=== PATIENT | male | born 1950 | race Caucasian/White ===

== ENCOUNTER 2023-06-19 19:09 | Inpatient (IN) | payer SELFPAY ==
[2023-06-19] VITALS (12 sets, daily range): BP systolic 140–163; BP diastolic 70–86; PULSE 35–63; RESP 14–22; TEMP 36.7–36.8; O2SAT 94–98; BMI 28.0
--- NOTE | 2023-06-19 19:26 | ECG_ITS ---
APPROVED REPORT Exam: Resting ECG HR:65 bpm ECG Measurements Heart Rate 65 AXES WV 141 P 43 QRSd 90 QRS 25 QT 400 T 49 QTc 411 Conclusion SINUS RHYTHM NORMAL ECG UNCONFIRMED REPORT Electronically signed by : Carlos Manuel Joseph MD 06/20/2023 12:07:38
--- NOTE | 2023-06-19 19:33 | CT_ITS ---
PROCEDURE INFORMATION: Exam: CTA Head With Contrast, Arteriography Exam date and time: 06/19/2023 8:13 PM Age: 73 years old Clinical indication: Other: AMS; Additional info: AMS, bradycardia, HTN TECHNIQUE: Imaging protocol: Computed tomographic angiography of the head with contrast. Exam focused on the arteries. 3D rendering (Not supervised by radiologist): MIP and/or 3D reconstructed images were created by the technologist. Radiation optimization: All CT scans at this facility use at least one of these dose optimization techniques: automated exposure control; mA and/or kV adjustment per patient size (includes targeted exams where dose is matched to clinical indication); or iterative reconstruction. Contrast material: ISOVUE; Contrast volume: 100 ml; Contrast route: INTRAVENOUS (IV); REPORTING DATA: Count of CT and Cardiac NM exams in prior 12 months: This patient has received 0 known CTs and 0 known cardiac nuclear medicine studies in the 12 months prior to the current study. COMPARISON: CT HEAD/BRAIN WO CON 06/19/2023 8:09 PM FINDINGS: ANTERIOR CIRCULATION: Right internal carotid artery: Intracranial segment is patent with no significant stenosis. No aneurysm. Right middle cerebral artery: No occlusion or significant stenosis. No aneurysm. Right anterior cerebral artery: No occlusion or significant stenosis. No aneurysm. Left internal carotid artery: Intracranial segment is patent with no significant stenosis. No aneurysm. Left middle cerebral artery: No occlusion or significant stenosis. No aneurysm. Left anterior cerebral artery: No occlusion or significant stenosis. No aneurysm. POSTERIOR CIRCULATION: Right vertebral artery: No occlusion or significant stenosis. No aneurysm. Left vertebral artery: No occlusion or significant stenosis. No aneurysm. Basilar artery: No occlusion or significant stenosis. No aneurysm. Right posterior cerebral artery: No occlusion or significant stenosis. No aneurysm. Left posterior cerebral artery: No occlusion or significant stenosis. No aneurysm. Brain: No definite mass, mass effect, or midline shift. Cerebral ventricles: No ventriculomegaly. Bones/joints: Unremarkable. No acute fracture. Soft tissues: Unremarkable. IMPRESSION: No large vessel stenosis or occlusion.
--- NOTE | 2023-06-19 19:33 | XR_ITS ---
PROCEDURE INFORMATION: Exam: XR Chest Exam date and time: 06/19/2023 7:56 PM Age: 73 years old Clinical indication: Other: AMS TECHNIQUE: Imaging protocol: Radiologic exam of the chest. Views: 1 view. COMPARISON: No relevant prior studies available. FINDINGS: Lungs: Unremarkable. No consolidation. Pleural spaces: Unremarkable. No pleural effusion. No pneumothorax. Heart/Mediastinum: Unremarkable. No cardiomegaly. Bones/joints: Moderate degenerative changes throughout the thoracic spine and in the right shoulder. No acute fracture. IMPRESSION: No acute disease
--- NOTE | 2023-06-19 19:33 | CT_ITS ---
PROCEDURE INFORMATION: Exam: CT Head Without Contrast Exam date and time: 06/19/2023 8:09 PM Age: 73 years old Clinical indication: Altered mental status/memory loss; Additional info: AMS, bradycardia, HTN TECHNIQUE: Imaging protocol: Computed tomography of the head without contrast. Radiation optimization: All CT scans at this facility use at least one of these dose optimization techniques: automated exposure control; mA and/or kV adjustment per patient size (includes targeted exams where dose is matched to clinical indication); or iterative reconstruction. REPORTING DATA: Count of CT and Cardiac NM exams in prior 12 months: This patient has received 0 known CTs and 0 known cardiac nuclear medicine studies in the 12 months prior to the current study. COMPARISON: No relevant prior studies available. FINDINGS: Brain: Moderate-sized area of hypoattenuation in the left basal ganglia concerning for acute to subacute ischemia. No intracranial hemorrhage, mass effect or midline shift. Mild generalized cerebral atrophy. Cerebral ventricles: No ventriculomegaly. Paranasal sinuses: Moderate mucosal thickening in the right frontal sinus and bilateral ethmoid air cells as well as the bilateral sphenoid sinus locule. Maxillary sinuses appear clear. Mastoid air cells: Visualized mastoid air cells are well aerated. Bones/joints: Unremarkable. No acute fracture. Soft tissues: Unremarkable. IMPRESSION: Findings concerning for acute to subacute ischemia in the left basal ganglia. No acute intracranial hemorrhage.
--- NOTE | 2023-06-19 19:33 | CT_ITS ---
PROCEDURE INFORMATION: Exam: CTA Neck With Contrast Exam date and time: 06/19/2023 8:13 PM Age: 73 years old Clinical indication: Other: AMS; Additional info: AMS, bradycardia, HTN TECHNIQUE: Imaging protocol: Computed tomographic angiography of the neck with contrast. 3D rendering (Not supervised by radiologist): MIP and/or 3D reconstructed images were created by the technologist. Radiation optimization: All CT scans at this facility use at least one of these dose optimization techniques: automated exposure control; mA and/or kV adjustment per patient size (includes targeted exams where dose is matched to clinical indication); or iterative reconstruction. Contrast material: ISOVUE; Contrast volume: 100 ml; Contrast route: INTRAVENOUS (IV); REPORTING DATA: Count of CT and Cardiac NM exams in prior 12 months: This patient has received 0 known CTs and 0 known cardiac nuclear medicine studies in the 12 months prior to the current study. COMPARISON: CT HEAD/BRAIN WO CON 06/19/2023 8:09 PM FINDINGS: Right common carotid artery: No stenosis. No dissection or occlusion. Right internal carotid artery: No stenosis of the extracranial segment. No dissection or occlusion. Right external carotid artery: No occlusion or stenosis of the origin. Left common carotid artery: No stenosis. No dissection or occlusion. Left internal carotid artery: No stenosis of the extracranial segment. No dissection or occlusion. Left external carotid artery: No occlusion or stenosis of the origin. 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 Left vertebral artery: No stenosis. No dissection or occlusion. Thyroid: Heterogeneous 10 mm right lobe thyroid nodule with adjacent coarse calcification. Thyroid gland is otherwise unremarkable. Soft tissues: Normal. No significant soft tissue swelling. Bones/joints: Moderate multilevel degenerative disc changes and facet arthropathy throughout the cervical spine with multilevel anterior osteophyte formation. No acute fracture or subluxation. IMPRESSION: 1. No carotid stenosis 2. Patent bilateral vertebral arteries 3. Moderate degenerative changes throughout the cervical spine. 4. 10 mm right lobe thyroid nodule. Correlation with thyroid ultrasound recommended when clinically feasible. COMMENTS: Consistent with the [employer]'s Incidental Findings Committee white paper (J Am Boaz Radiol 2015): In patients aged 35 years and older with an incidental thyroid nodule equal to or greater than 1.[address], MRI or extrathyroidal US, further evaluation with dedicated thyroid US is recommended for patients with normal life expectancy and without comorbidities. For smaller nodules without suspicious features, no further evaluation or follow up is recommended. REFERENCES: NASCET CRITERIA. The degree of stenosis in the cervical segment of the internal carotid artery is based on NASCET criteria. Normal is no stenosis. Mild is less than 50% stenosis. Moderate is 50-69% stenosis. Severe is 70% to 99% stenosis. Total occlusion is no detectable patent lumen.
[2023-06-19 19:50] LABS: VBG Base Excess -0.2 mmol/L (-2.4-2.3); VBG HCO3 25.7 mmol/L (23-30); VBG Oxygen Saturation 61.2 % (50-70); VBG PCO2 49.5 mmol/L (35-51); VBG PH 7.33 mmol/L (7.31-7.41); VBG PO2 33.9 mmol/L (28-40); VBG Total CO2 27.2 mmol/L (23-27)
[2023-06-19 19:51] LABS: Basophils # 0.1 K/mm3 (0-0.2); Basophils % 0.9 % (0.1-2.0); Eosinophils # 0.2 K/mm3 (0.0-0.4); Hematocrit 42.6 % (42.0-52.0); Hemoglobin 13.7 g/dL (14.1-18.0); Lymphocytes # 1.8 K/mm3 (0.7-4.5); Lymphocytes % 31.7 % (10-50); Mean Corpuscular HGB Conc 32.2 g/dL (31.8-35.4); Mean Corpuscular Hemoglobin 30.5 pg (27.0-31.2); Mean Corpuscular Volume 94.8 fl (80-94); Mean Platelet Volume 8.6 fl (7.4-10.4); Monocytes # 0.5 K/mm3 (0.1-1.0); Monocytes % 8.5 % (1.7-9.3); Neutrophils # 3.1 K/mm3 (1.8-7.8); Neutrophils % 54.9 % (37.0-80.0); Platelet Count 241 K/mm3 (142-424); Red Blood Count 4.49 M/mm3 (4.60-6.20); Red Cell Distribution Width 13.7 % (11.5-17.5); White Blood Count 5.7 K/mm3 (4.8-10.8)
[2023-06-19 19:55] LABS: Alanine Aminotransferase 18 U/L (12-78); Albumin Level 4.2 g/dl (3.5-5.0); Albumin/Globulin Ratio 1.2 (1.1-1.8); Alkaline Phosphatase 38 U/L (38-126); Anion Gap 10.9 mEq/L (5-15); Aspartate Amino Transferase 27 U/L (17-59); Bilirubin,Total 0.3 mg/dl (0.2-1.3); Blood Urea Nitrogen 26 mg/dl (9-20); Calcium 9.3 mg/dl (8.4-10.2); Carbon Dioxide 29 mmol/L (22.0-30.0); Chloride 104 mmol/L (98-107); Creatinine Clearance Estimated 73 mL/min (50-200); Estimated Glomerular Filt Rate 83 ml/min (>60); GFR (African American) 100 ML/MIN (>60); Globulin 3.6 g/dL (1.3-3.2); Glucose 157 mg/dl (74-100); Potassium 3.9 mmoL/L (3.5-5.1); Sodium 140 mmol/L (136-145); Total Protein,Serum 7.8 g/dl (6.3-8.2)
--- NOTE | 2023-06-19 19:57 | HMH.EDGENADL ---
Discharge Plan Disposition Patient Disposition: Admitted Clinical Impressions Clinical Impression: Ischemic cerebrovascular accident (CVA), AMS (altered mental status) Discharge ED Provider: Christiano White General Adult HPI General Chief complaint: Arrhythmia/Palpitations Stated complaint: tired,and mental status change Time Seen by Provider: 06/19/23 19:10 Mode of Arrival: Ambulatory Source of Information: Patient Limitations: No Limitations Description of Symptoms (Recalled from ER Triage Doc. by RN): pt cc today was Altered mental status, fatigue, weakness, pt was 35 bpm upon arrival, History of Present Illness HPI narrative: 73-year-old male with no relevant medical history other than diabetes presenting with weakness, confusion, fatigue. Patient started acting like this 1 day prior to arrival on 06/18. Patient usually alert, oriented, able to walk around, taking care of his who is chronically ill. Today, was unable to focus on anything and continued to be confused. No vomiting, diarrhea, fevers, rash, or any other abnormalities. Patient unable to contribute history, history largely available from son. Patient does not take medications every day, but does take supplements. Unsure what these are. Related Data Allergies Allergy/AdvReac Type Severity Reaction Status Date / Time No Known Allergies Allergy Verified 06/19/23 19:44 [facility] Disclaimer: The information contained in this section may have been updated after the patient was seen, as this information can be updated by other users. Social History Smoking Status: Former smoker alcohol intake: never current occupational status: unemployed Travel in the last 8 weeks: None ROS Obtained: Yes All systems reviewed & no additional complaints except as documented Physical Exam General General appearance: alert and lethargic Head Head exam: atraumatic and normocephalic Eye Eye exam: Present normal appearance, PERRL and EOMI; Absent scleral icterus or conjunctival redness ENT ENT exam: Present mucous membranes dry Neck Neck exam: Present normal inspection, full ROM and trachea midline; Absent meningismus Respiratory Respiratory exam: Present normal lung sounds bilaterally; Absent respiratory distress, wheezes, stridor, accessory muscle use or prolonged expiratory phase Cardiovascular Cardiovascular exam: Present normal rhythm and bradycardia Abdominal Exam Abdominal exam: Present soft; Absent distention, tenderness, guarding, rebound, rigidity or normal bowel sounds Extremities Exam Extremities exam: Absent edema Neurological Exam Neurological exam: Present alert, CN II-XII intact and normal gait; Absent oriented X3 (Oriented only to person) or motor sensory deficit Skin Skin exam: Present warm, dry and pallor; Absent diaphoresis or erythema Medical Decision Making Medical Records Medical records reviewed: Yes I reviewed the patient's medical records. Prasad Inquiry Pt receiving controlled substance: No Prasad was queried for this patient: No Vital Signs: 06/19/23 19:12 06/19/23 21:04 06/19/23 22:13 Temperature 98.0 F 98.2 F Temperature Source Oral Pulse Rate 56 L 56 L Pulse Rate [Right Radial] 35 L Respiratory Rate 20 18 16 Blood Pressure 156/80 H 144/83 H Blood Pressure [Right Arm] 161/70 H Blood Pressure Mean Blood Pressure Mean [Right Arm] 100 02 Sat by Pulse Oximetry 95 Oxygen Delivery Method Room Air Room Air 06/19/23 19:21 06/19/23 19:30 06/19/23 20:30 Temperature Temperature Source Pulse Rate 44 L 63 54 L Pulse Rate [Right Radial] Respiratory Rate 20 22 15 Blood Pressure 163/81 H 140/85 Blood Pressure [Right Arm] Blood Pressure Mean Blood Pressure Mean [Right Arm] 02 Sat by Pulse Oximetry 98 95 95 Oxygen Delivery Method Room Air Room Air Room Air 06/19/23 20:31 06/19/23 21:01 06/19/23 21:30 Temperature Temperature Source Pulse Rate 58 L 57 L 54 L Pulse Rate [R
[2023-06-19 20:07] LABS: Acetone, Serum (Rapid) None Detected (None Detect)
[2023-06-19 20:08] LABS: Troponin I < 0.01 ng/ml (0.00-0.034)
[2023-06-19 20:18] LABS: Lactic Acid 1.3 mmol/L (0.7-2.1)
[2023-06-19 20:29] LABS: T4 (Thyroxine) 6.8 ug/dl (5.53-11.0)
--- NOTE | 2023-06-19 20:32 | PC.NURSE ---
Dr. White s/w [facility]
--- NOTE | 2023-06-19 20:39 | PC.NURSE ---
PER ER 2nd set of blood cultures not needed
[2023-06-19 20:42] LABS: Thyroid Stimulating Hormone 1.93 uIU/mL (0.465-4.68)
--- NOTE | 2023-06-19 20:47 | PC.NURSE ---
Calling [facility] regarding possible transfer
--- NOTE | 2023-06-19 20:49 | PC.NURSE ---
automobile club membership sales agent will be calling back. s/w wind technician and images are power-shared with [facility] and will prepare a disc.
--- NOTE | 2023-06-19 21:00 | PC.NURSE ---
Dr. White s/w Dr. Prasad with [facility]
[2023-06-19 21:04] LABS: Activated Partial Thrombo Time 27.3 seconds (22.8-30.6); INR 1.06 (0.9-1.1); Prothrombin Time 11.4 seconds (10.1-12.5)
[2023-06-19 21:08] LABS: Hemoglobin A1C 7.9 % (4.0-6.0)
--- NOTE | 2023-06-19 21:23 | PC.NURSE ---
PER ER MD patient will not be transferred to and will be staying here for medical management, ER currently speaking with hospital medicine
[2023-06-19 21:27] LABS: Benzodiazepines Screen,Urine Negative ng/ml (<200)
[2023-06-19 21:28] LABS: Amphetamine/Metha Screen,Urine Negative ng/ml (<1000)
[2023-06-19 21:29] LABS: Barbiturates Screen,Urine Negative ng/ml (<200); Methadone Screen,Urine Negative ng/ml (<300)
[2023-06-19 21:30] LABS: Cannabinoid Screen,Urine Negative ng/ml (<50)
[2023-06-19 21:31] LABS: Cocaine Screen,Urine Negative ng/ml (<300); Opiate Screen,Urine Negative ng/ml (<300)
[2023-06-19 21:32] LABS: Phencyclidine Screen,Urine Negative ng/ml (<25)
--- NOTE | 2023-06-19 21:46 | PC.NURSE ---
notified boiler house inspector of admission
--- NOTE | 2023-06-19 21:48 | PC.NURSE ---
PATIENT ADMITTED TO [facility] WITH DX OF ACUTE CVA TO SERVICE OF THE HOSPITALIST.
--- NOTE | 2023-06-19 22:04 | PC.NURSE ---
Gave report to Elise Reyes on Med/Surg
--- NOTE | 2023-06-19 22:18 | PC.NURSE ---
pt to floor via stretcher at this time
--- NOTE | 2023-06-19 23:21 | EXP.HP ---
History of Present Illness *Admission Date: 06/19/23 *History of present illness: This is a 73-year-old male with no known medical history other than hyperglycemia presenting with weakness, confusion, fatigue started 1 day prior to arrival on 06/18. Patient usually alert, oriented, able to walk around, taking care of his who is chronically ill. Today, was unable to focus on anything and continued to be confused. Patient is s poor historian therefore data is limited, history obtained by ER review and family at bedside. No vomiting, diarrhea, fevers, rash, or any other abnormalities. Patient does not take medications every day, but does take home supplements. Admitted for evaluation and treatment. [facility] Disclaimer: The information contained in this section may have been updated after the patient was seen, as this information can be updated by other users. Medical History (Updated 06/20/23 @ 07:41 by Sandeep Frost MD) Diabetes Social History (Updated 06/19/23 @ 22:57 by Shaina Tse RN) Smoking Status: Former smoker alcohol intake: never current occupational status: unemployed Travel in the last 8 weeks: None Review of Systems Review of Systems Review of systems:: pertinent systems reviewed and negative unless documented below Meds Home Medications and Allergies Home Medications Medication Instructions Recorded Confirmed Type No Known Home Medications 06/20/23 06/20/23 History New Prescriptions to Start Prescriptions: Allergies Allergy/AdvReac Type Severity Reaction Status Date / Time No Known Allergies Allergy Verified 06/19/23 19:44 Exam Data for Last 24 hours Vital signs and Labs for Last 24 Hours: Temp Pulse Resp BP Pulse Ox O2 Del Method 98.2 F 56 L 16 144/83 H 95 Room Air 06/19/23 22:13 06/19/23 22:13 06/19/23 22:13 06/19/23 22:13 06/19/23 22:00 06/19/23 22:13 Laboratory Results - last 24 hr 06/19/23 19:25: WBC 5.7, RBC 4.49 L, Hgb 13.7 L, Hct 42.6, MCV 94.8 H, MCH 30.5, MCHC 32.2, RDW 13.7, Plt Count 241, MPV 8.6, Neut % (Auto) 54.9, Lymph % (Auto) 31.7, Ashe % (Auto) 8.5, Eos % (Auto) 4.0, Baso % (Auto) 0.9, Neut # (Auto) 3.1, Lymph # (Auto) 1.8, Ashe # (Auto) 0.5, Eos # (Auto) 0.2, Baso # (Auto) 0.1, PT 11.4, INR 1.06, APTT 27.3, Sodium 140, Potassium 3.9, Chloride 104, Carbon Dioxide 29, Anion Gap 10.9, BUN 26 H, Creatinine 0.90, Estimated Creat Clear 73, Estimated GFR 83, Est GFR ( Amer) 100, Glucose 157 H, Hemoglobin A1c 7.9 H, Calcium 9.3, Total Bilirubin 0.3, AST 27, ALT 18, Alkaline Phosphatase 38, Troponin I < 0.01, Total Protein 7.8, Albumin 4.2, Globulin 3.6 H, Albumin/Globulin Ratio 1.2, TSH 1.93, Thyroxine (T4) 6.8, Acetone Level None detected 06/19/23 19:33: VBG pH 7.33, VBG pCO2 49.5, VBG pO2 33.9, VBG HCO3 25.7, VBG Total CO2 27.2 H, VBG O2 Saturation 61.2, VBG Base Excess -0.2 06/19/23 19:50: Lactate 1.3 06/19/23 21:10: Urine Opiates Screen Negative, Urine Methadone Screen Negative, Ur Barbituates Screen Negative, Ur Phencyclidine Scrn Negative, Ur Amphetamines Screen Negative, U Benzodiazepines Scrn Negative, Urine Cocaine Screen Negative, U Marijuana (THC) Screen Negative I & O for Last 24 hours: Intake & Output 06/16/23 06/17/23 06/18/23 06/19/23 23:59 23:59 23:59 23:59 Intake Total 1000 / 1000 Balance 1000 / 1000 Weight 79.038 kg Constitutional Constitutional: no acute distress, cooperative and somnolent *Routine HEENT Exam Head: Present normocephalic and atraumatic Eye: Present EOMI, PERRL and normal accommodation ENT: Present mucous membranes moist *Routine Neck Exam Neck: Present supple, full ROM and trachea midline *Routine Respiratory Exam Respiratory: Present normal respiratory effort, able to speak in complete sentences and symmetric chest movement *Routine Cardiovascular Exam Cardiovascular: Present RRR, Normal S1, Normal S2 and bradycardia *Routine Abdominal Exam Abdominal: Present soft and normoacti
[2023-06-19 23:42] LABS: Troponin I < 0.01 ng/ml (0.00-0.034)
[2023-06-20] VITALS (9 sets, daily range): BP systolic 110–134; BP diastolic 52–85; PULSE 39–63; RESP 16–22; TEMP 36.3–37; O2SAT 92–99; BMI 28.0
[2023-06-20 02:21] LABS: Troponin I < 0.01 ng/ml (0.00-0.034)
[2023-06-20 06:41] LABS: Basophils % 0.5 % (0.1-2.0); Eosinophils # 0.2 K/mm3 (0.0-0.4); Eosinophils % 2.7 % (0.1-12.0); Hematocrit 43.4 % (42.0-52.0); Hemoglobin 13.8 g/dL (14.1-18.0); Lymphocytes # 1.6 K/mm3 (0.7-4.5); Lymphocytes % 21.2 % (10-50); Mean Corpuscular HGB Conc 31.7 g/dL (31.8-35.4); Mean Corpuscular Hemoglobin 30.5 pg (27.0-31.2); Mean Platelet Volume 8.3 fl (7.4-10.4); Monocytes # 0.5 K/mm3 (0.1-1.0); Monocytes % 6.8 % (1.7-9.3); Neutrophils # 5.1 K/mm3 (1.8-7.8); Neutrophils % 68.7 % (37.0-80.0); Platelet Count 247 K/mm3 (142-424); Red Blood Count 4.52 M/mm3 (4.60-6.20); Red Cell Distribution Width 13.8 % (11.5-17.5); White Blood Count 7.4 K/mm3 (4.8-10.8)
[2023-06-20 06:55] LABS: Alanine Aminotransferase 16 U/L (12-78); Albumin Level 3.6 g/dl (3.5-5.0); Albumin/Globulin Ratio 1.1 (1.1-1.8); Alkaline Phosphatase 40 U/L (38-126); Anion Gap 10.3 mEq/L (5-15); Aspartate Amino Transferase 21 U/L (17-59); Bilirubin,Total 0.5 mg/dl (0.2-1.3); Blood Urea Nitrogen 17 mg/dl (9-20); Carbon Dioxide 30 mmol/L (22.0-30.0); Chloride 105 mmol/L (98-107); Chol/HDL Ratio 6.4 (1-3.5); Cholesterol 193 mg/dl (140-200); Creatinine Clearance Estimated 74 mL/min (50-200); Estimated Glomerular Filt Rate 83 ml/min (>60); GFR (African American) 100 ML/MIN (>60); Globulin 3.2 g/dL (1.3-3.2); Glucose 144 mg/dl (74-100); HDL Cholesterol 30 mg/dl (40-60); Phosphorous 3.9 mg/dl (2.5-4.5); Potassium 4.3 mmoL/L (3.5-5.1); Sodium 141 mmol/L (136-145); Total Protein,Serum 6.8 g/dl (6.3-8.2); Triglycerides 88 mg/dl (30-150); VLDL Cholesterol 18 mg/dL (0-40)
[2023-06-20 07:05] LABS: Direct LDL Cholesterol 114.72 mg/dL (100-129)
--- NOTE | 2023-06-20 07:30 | CA_ITS ---
APPROVED REPORT EXAM: Comprehensive 2D, Doppler, and color-flow Echocardiogram Joint Setter: Angie Rene CRT Ht: 5 ft 6 in Wt: 174lbs BSA: 1.88 BP: 144/83 mmHg Indications: CVA/TIA, Diabetes,BRADYCARDIA HR DROPPED TO 38 DURING ECHO 2D Dimensions LVOT 1.67 cm (M/F) 1.5-2.5 LA Volume 38.70 mL LA Volume Index 20.10 mL/m2 (M/F) 16-34 M-Mode Dimensions RVDd 2.48 cm (0.9-2.6) LA Diam 4.09 cm (1.9-4.0) LVDd 4.22 cm (3.5-5.7) Ao Diam 3.71 cm (2.0-3.7) LVDs 3.11 cm (3.5-5.7) IVSd 1.98 cm (0.6-1.1) PWd 0.70 cm (0.6-1.1) EF (Teich) 51.90% FS 26.30% EDV (Teich) 79.50 mL TAPSE 2.10 (<1.7) ESV (Teich) 38.20 mL LV Diastology E Decel Time 317.00 (160-240 msec) E/A Ratio 0.74 MED E' 6.70 (< 7 cm/sec) MED A' 10.30 cm/s E'/MED E' Ratio 7.99 (>14) LAT E' 8.40 (<10 cm/sec) LAT A' 9.40 cm/s E/LAT E' Ratio 6.37 (>14) Aortic Valve AI PHT 917.00 ms AO Peak GR. 5.30 mmHg Mitral Valve MV A Velocity 73.00 (40-130 cm/s) E/A Ratio 0.74 MV Decel. Time 317.00 (160-240 ms) Tricuspid Valve TR P. Velocity 222.00 cm/s RAP Estimate 10.00 mmHg RVSP 29.70 mmHg Left Ventricle The left ventricle is normal size. The left ventricular systolic function is normal. The left ventricular ejection fraction is within the normal range. There is normal left ventricular wall thickness. There is normal LV segmental wall motion. The left ventricular diastolic function is normal. LVEF is 55-60%. Right Ventricle Right ventricle is mildly dilated. The right ventricular systolic function is normal. Atria The left atrium size is normal. The right atrium size is normal. There is no Doppler evidence of interatrial shunt. Aortic Valve The aortic valve is mildly thickened. There is no aortic valvular stenosis. Trace aortic regurgitation. Mitral Valve The mitral valve is normal in structure. No evidence of mitral valve stenosis. There is no mitral valve regurgitation noted. Tricuspid Valve The tricuspid valve leaflets are thin and pliable. Trace tricuspid regurgitation. There is insufficient TR jet to estimate RVSP. Pulmonic Valve The pulmonary valve is normal in structure. Trace pulmonic regurgitation. Great Vessels The aortic root is normal in size. The ascending aorta is normal in size. IVC is normal in size and collapses >50% with inspiration. Pericardium There is no pericardial effusion. Other Information Study Quality: Technically Difficult Conclusion This was a technically difficult study in the setting of poor acoustic windows. Normal biventricular systolic function. Mild RV dilation with normal RV function. No significant valvular stenosis or regurgitation. Electronically signed by : Gladys Smith MD 06/20/2023 14:44:35
--- NOTE | 2023-06-20 07:30 | CA_ITS ---
FINAL REPORT TECHNIQUE: Ballard scale, color and spectral doppler images of the bilateral carotid arteries were obtained. CLINICAL HISTORY: Stroke COMPARISON: None FINDINGS: Peak systolic velocity in the right internal carotid artery is 116 cm/sec. The internal carotid to common carotid artery ratio is 1.4. There is no significant carotid artery stenosis and mild plaque formation. The right vertebral artery is normal in direction. Peak systolic velocity in the left internal carotid artery is 101 cm/sec. The internal carotid to common carotid artery ratio is 1.8. There is no significant carotid artery stenosis and no significant plaque formation. The left vertebral artery is normal in direction. IMPRESSION: No ultrasound evidence of hemodynamically significant carotid artery stenosis. Normal peak systolic velocities and normal internal to common carotid artery ratios bilaterally. Antegrade flow bilateral vertebral arteries. Reviewed, Interpreted and Dictated by Rosy Camacho MD Transcribed by Dana Diaz Authenticated and [facility]
--- NOTE | 2023-06-20 07:36 | EXP.PN ---
Subjective *Date: 06/20/23 *Time: 07:36 Interval history: Patient seen and examined at bedside. I am accompanied by nursing staff. Nursing staff report that he remains afebrile with ongoing bradycardia and stable blood pressures. He is saturating appropriately on 2 L of oxygen via nasal cannula. His admission ECG identified no acute changes and his troponin trend is negative. His hemoglobin A1c is 7.9%, electrolytes are normal, creatinine 0.9, CBC normal with an MCV 96. His INR and TSH are normal. LFTs are normal. His lipid panel identifies a low HDL at 30. Chest x-ray identifies no acute disease. Head CT identifies concerns with a left basal ganglia subacute stroke. CT identified no stenosis of the neck or head. His risk factor for strokes have been reviewed including tobacco use and diabetes. Cardiology has been consulted for his bradycardia. An echocardiogram carotid Dopplers and MRI of the brain are pending. He will continue with antiplatelet and statin therapy. Exam Data for Last 24 hours Vital signs and Labs for Last 24 Hours: Temp Pulse Resp BP Pulse Ox O2 Del Method O2 Flow Rate 97.3 F L 42 L 16 110/66 96 Room Air 2 06/20/23 04:00 06/20/23 04:00 06/20/23 04:00 06/20/23 04:00 06/20/23 04:00 06/20/23 06:55 06/20/23 05:00 Laboratory Results - last 24 hr 06/19/23 19:25: WBC 5.7, RBC 4.49 L, Hgb 13.7 L, Hct 42.6, MCV 94.8 H, MCH 30.5, MCHC 32.2, RDW 13.7, Plt Count 241, MPV 8.6, Neut % (Auto) 54.9, Lymph % (Auto) 31.7, [place] % (Auto) 8.5, Eos % (Auto) 4.0, Baso % (Auto) 0.9, Neut # (Auto) 3.1, Lymph # (Auto) 1.8, [place] # (Auto) 0.5, Eos # (Auto) 0.2, Baso # (Auto) 0.1, PT 11.4, INR 1.06, APTT 27.3, Sodium 140, Potassium 3.9, Chloride 104, Carbon Dioxide 29, Anion Gap 10.9, BUN 26 H, Creatinine 0.90, Estimated Creat Clear 73, Estimated GFR 83, Est GFR ( Amer) 100, Glucose 157 H, Hemoglobin A1c 7.9 H, Calcium 9.3, Total Bilirubin 0.3, AST 27, ALT 18, Alkaline Phosphatase 38, Troponin I < 0.01, Total Protein 7.8, Albumin 4.2, Globulin 3.6 H, Albumin/Globulin Ratio 1.2, TSH 1.93, Thyroxine (T4) 6.8, Acetone Level None detected 06/19/23 19:33: VBG pH 7.33, VBG pCO2 49.5, VBG pO2 33.9, VBG HCO3 25.7, VBG Total CO2 27.2 H, VBG O2 Saturation 61.2, VBG Base Excess -0.2 06/19/23 19:50: Lactate 1.3 06/19/23 21:10: Urine Opiates Screen Negative, Urine Methadone Screen Negative, Ur Barbituates Screen Negative, Ur Phencyclidine Scrn Negative, Ur Amphetamines Screen Negative, U Benzodiazepines Scrn Negative, Urine Cocaine Screen Negative, U Marijuana (THC) Screen Negative 06/19/23 23:15: Troponin I < 0.01 06/20/23 01:51: Troponin I < 0.01 06/20/23 06:30: WBC 7.4 D, RBC 4.52 L, Hgb 13.8 L, Hct 43.4, MCV 96.0 H, MCH 30.5, MCHC 31.7 L, RDW 13.8, Plt Count 247, MPV 8.3, Neut % (Auto) 68.7, Lymph % (Auto) 21.2, [place] % (Auto) 6.8, Eos % (Auto) 2.7, Baso % (Auto) 0.5, Neut # (Auto) 5.1, Lymph # (Auto) 1.6, [place] # (Auto) 0.5, Eos # (Auto) 0.2, Baso # (Auto) 0.0, Sodium 141, Potassium 4.3, Chloride 105, Carbon Dioxide 30, Anion Gap 10.3, BUN 17 D, Creatinine 0.90, Estimated Creat Clear 74, Estimated GFR 83, Est GFR ( Amer) 100, Glucose 144 H, Calcium 9.0, Phosphorus 3.9, Magnesium 2.0, Total Bilirubin 0.5, AST 21, ALT 16, Alkaline Phosphatase 40, Total Protein 6.8, Albumin 3.6 D, Globulin 3.2, Albumin/Globulin Ratio 1.1, Triglycerides 88, Cholesterol 193, LDL Cholesterol Direct 114.72, VLDL Cholesterol 18, HDL Cholesterol 30 L, Cholesterol/HDL Ratio 6.4 H I & O for Last 24 hours: Intake & Output 06/17/23 06/18/23 06/19/23 06/20/23 23:59 23:59 23:59 23:59 Intake Total 1000 / 1150 150 / 150 Output Total 800 / 800 Balance 1000 / 700 -650 / -650 Weight 79.038 kg 79.038 kg Constitutional Constitutional: no acute distress and cooperative *Routine HEENT Exam Head: Present normocephalic Eye: Present EOMI and PERRL; Absent nystagmus ENT: Present mucous membranes moist *Routine Neck Exam Neck: Present supple, full
--- NOTE | 2023-06-20 08:45 | PC.NURSE ---
[address] Santosh lan to transfer pt out of stepdown.
--- NOTE | 2023-06-20 10:30 | MR_ITS ---
FINAL REPORT TECHNIQUE: Multiplanar and multisequence imaging of the brain was obtained without contrast. CLINICAL HISTORY: STROKE FINDINGS: There is no mass effect or midline shift. There is abnormal T2 signal intensity in the left basal ganglia. There is otherwise mild periventricular T2 abnormality. The ventricles are symmetric without hydrocephalus. There is restricted diffusion within the left basal ganglia consistent with acute ischemia. The posterior fossa is without acute abnormality. There is partial opacification of the sphenoid sinus, ethmoid air cells, and right frontal sinus. IMPRESSION: Acute ischemia in the left basal ganglia. Sinusitis as above. Reviewed, Interpreted and Dictated by Rosy Camacho MD Transcribed by Karen Bravo Authenticated and [facility]
--- NOTE | 2023-06-20 10:37 | HMH.OTEV ---
OT Inpatient Evaluation Rehab OT IP Evaluation Start: 06/20/23 00:05 Freq: ONCE Status: Active Protocol: Document 06/20/23 10:09 GINA (Rec: 06/20/23 10:35 GINA [id number]) Rehab OT IP Assessment Subjective History This is a 73-year-old male with no known medical history other than hyperglycemia presenting with weakness, confusion, fatigue started 1 day prior to arrival on 06/18. Patient usually alert, oriented, able to walk around, taking care of his who is chronically ill. Today, was unable to focus on anything and continued to be confused. Patient is a poor historian therefore data is limited, history obtained by ER review and family at bedside. No vomiting, diarrhea, fevers, rash, or any other abnormalities. Patient does not take medications every day, but does take home supplements. Admitted for evaluation and treatment. In the ED a CT of the brain identified subacute left basal ganglia changes and bradycardia. Patient lives with at home. 2-3 [facility] home. Patient is the primary caregiver of who is on hospice. Independent with all ADLs and fx'l mobility prior. Subjective I can get up. Patient was incontinet of bladder mgt tr. Patient completed bed mobility from supine->sit @ EOB->stand-> ambulate ~50ft with usage of RW requiring Min A. Patient demonstrated good dynamic sitting balance at EOB. Min A to ambulate throughout environment in room and in hallways. No LOB noted. Slight facial drooping to R face. Aline SOTO shld are cindy LEARY
--- NOTE | 2023-06-20 11:05 | EXP.CARD.CON ---
History of Present Illness History of Present Illness Consult date: 06/20/23 Requesting physician: Sandeep Frost Chief complaint: AMS History of present illness: This is a 73-year-old white gentleman who presented to the emergency department with weakness, confusion and fatigue which started the day prior to his arrival. The patient is usually alert and oriented and able to walk around and take care of himself and his chronically ill . He was found at home unable to focus and very confused and weak and fatigued which was unlike him. He was evaluated by a neighbor who is in the medical field and she recommended he come to the emergency department. The patient came to the emergency department here at [facility] and he was found to have an acute to subacute ischemia in the left basal ganglia with no intra cranial hemorrhage. This morning he still states that he feels really tired and fatigued but his confusion has improved. He is alert and oriented this morning. He denies any chest pain or pressure. He denies any shortness of breath or edema. He denies any fever, chills, nausea, vomiting, diarrhea, PND or orthopnea. He states that he has noticed that he has been fatigued here recently but it got really bad yesterday and he was just not himself. The patient does have known diabetes mellitus which he controls with his diet. He denies any hypertension, hyperlipidemia or coronary artery disease or RI. He denies any family history of coronary artery disease or RI. [facility] Disclaimer: The information contained in this section may have been updated after the patient was seen, as this information can be updated by other users. Medical History (Updated 06/20/23 @ 11:14 by Chana Gama APRN) AMS (altered mental status) Bradycardia Diabetes Elevated hemoglobin A1c History of tobacco use Ischemic cerebrovascular accident (CVA) Metabolic encephalopathy Social History (Updated 06/19/23 @ 22:57 by Shaina Tse RN) Smoking Status: Former smoker alcohol intake: never current occupational status: unemployed Travel in the last 8 weeks: None Review of Systems Review of Systems Review of systems:: pertinent systems reviewed and negative unless documented below Constitutional Constitutional: Reports system reviewed and no additional complaints, except as documented, Reports fatigue, Reports lethargy and Reports weakness Eyes Eyes: Reports system reviewed and no additional complaints, except as documented ENT Ears, Nose, Mouth, and Throat: Reports system reviewed and no additional complaints, except as documented *Cardiovascular Cardiovascular: Reports system reviewed and no additional complaints, except as documented, Denies chest pain and Denies dyspnea *Respiratory Respiratory: Reports system reviewed and no additional complaints, except as documented and Denies dyspnea *Gastrointestinal Gastrointestinal: Reports system reviewed and no additional complaints, except as documented *Genitourinary Genitourinary: Reports system reviewed and no additional complaints, except as documented *Musculoskeletal Musculoskeletal: Reports system reviewed and no additional complaints, except as documented Integumentary/Breasts Skin/Breast: Reports system reviewed and no additional complaints, except as documented *Neurologic Neurologic: Reports system reviewed and no additional complaints, except as documented, Reports confusion and Reports weakness Psychiatric Psychiatric: Reports system reviewed and no additional complaints, except as documented and Reports confusion Endocrine Endocrine: Reports system reviewed and no additional complaints, except as documented and Reports fatigue Hematologic/Lymphatic Hematologic/Lymphatic: Reports system reviewed and no additional complaints, except as documented Allergic/Immunologic Allergic/Immunologic: Reports system reviewed and no additional complaints, except as documented Exam Data for Last
--- NOTE | 2023-06-20 11:11 | PC.NURSE ---
1059 off unit to MRI with Radha in radiology
--- NOTE | 2023-06-20 12:07 | HMH.PTEV ---
Physical Therapy Evaluation Rehab PT IP Evaluation Start: 06/20/23 00:05 Freq: ONCE Status: Active Protocol: Document 06/20/23 11:47 KIM (Rec: 06/20/23 12:07 KIM [id number]) Subjective/History History History Pt is a 73 year old male that presented to [facility] ED on 2022 with reports of weakness, confusion and fatigue that began on 06/18/2023. At baseline, pt is independent with all tasks and assists to care for his who is currently on hospice. Pt was admitted for IP management and treatment. Head CT revealed acute to subacute ischemia in the left basal ganglia. PMH: hyperglycemia Subjective Subjective Pt presents supine in bed with family at side, pleasant and agreeable to therapy initial evaluation. Pt denies reports of pain at rest. AOx4. Pt reports that at baseline, he is independent with all B/IADL 's and does not use an AD at rest. Pt reports that he assists to care for his who is currently on hospice care. Pt performed supine to sit on EOB with CGA for safety. Pt able to maintain static sitting on EOB with CGA for safety, no LOB noted. Pt performed sit to stand transfer with the use of a RW with min A x1. Pt ambulated x 75' with the use of a RW and CGA for safety, no LOB noted. Following evaluation, pt left supine in bed with family at side and call light within reach. New diagnosis of cancer in past 12 No months? Rehab PT IP Eval Objective Appearance Patient Behavior Appropriate,Cooperative Patient Orientation Person,Place,Time,Situation Difficulty following instructions none Speech Pattern Clear,Appropriate Ambulation Patient Able to Ambulate Yes Ambulation
[2023-06-20 12:35] LABS: POC Glucose,Bedside 140 (70-110)
--- NOTE | 2023-06-20 13:25 | HMH.SLDYSPHA ---
Speech & Language Evaluation Speech/Language Dysphagia Evaluation Start: 06/20/23 13:14 Freq: ONCE Status: Active Protocol: Document 06/20/23 13:14 DEJUANJERRY (Rec: 06/20/23 13:25 [id number] Dysphagia Assess/Goals/Plan Assessment Date of Evaluation: 06/20/23 Evaluation Type Initial Certification Assessment/Problems stroke per MD order. Does Patient Qualify for Service Yes Qualify/Failure Comment Based on clinical observations made during the bedside swallow evaluation, Mr. Rodolfo Barrientos's oropharyngeal phase of the swallow and mastication appear to be WFL. No further skilled speech therapy services are warranted at this time. Recommendations PHYSICIAN CERTIFICATION: The specified therapy services are required, authorized, and reviewed every 30 days. Diet Recommendations Mechanical Soft Liquid Type Recommendations Normal/Thin SL Swallow Guidelines Alt bite w/sip thru meal, Standard Aspiration Prec.,Eat at slow rate Dysphagia Swallow Precautions/Strategies Sitting Upright (90 deg),No Straw,Small Bites and Sips, Alternate Liquids/Solids Place Food on Either side of Mouth Plan Pt/Guardian verbally ack understanding Yes of dx/prognosis/goals G -code Required No Education Instructions provided Discussed results of CSE, diet recommendations, and standard aspiration precautions with patient and their family, as well as nursing all of which expressed understanding. Pt/Caregiver able to recall information Able to recall/restate Reinforcement needed No Speech & Language HPI History Present Illness Description of Patient Problem Mr. Rodolfo Barrientos is a 73-year- old male with no known medical history other than hyperglycemia presenting with weakness, confusion, fatigue started 1 day prior to arrival on 06/18. Patient usually alert, oriented, able to walk around, taking care of his who is chronically ill. Per nursing, prior to CSE, was asking to eat. Patient is a poor historian therefor
--- NOTE | 2023-06-20 14:16 | SW/DCPLANNER ---
I received a consult on this patient regarding discharge planning. PT/OT evaluated patient this AM and stated that patient is safe to return home w/ home health services. I spoke with patient this afternoon regarding resources at home including home health and DME. Patient is not interested in home health services and stated that he will not need any DME at time of discharge. My name and number was left w/ this patient for any future references. I also informed patient that if any needs did come up prior to discharge to please inform staff and CM will assist. Discharge date is unknown at this time.
[2023-06-20 16:26] LABS: POC Glucose,Bedside 226 (70-110)
--- NOTE | 2023-06-20 16:41 | PC.NURSE ---
pt has rested in room this shift following MRI this am. pt is alert to self and that he is in a hospital but not which one and he also cannot name the month. lungs are clear but diminished. no bm this shift. bowel sounds are active in all quads. nad noted. pt has family at bedside. pt has stress test scheduled for friday at this time.
[2023-06-20 21:16] LABS: POC Glucose,Bedside 111 (70-110)
[2023-06-21] VITALS: BP 117/60; PULSE 50; PULSE 60; RESP 17; TEMP 36.6; O2SAT 96
[2023-06-21 04:00] VITALS: BP 112/67; PULSE 40; PULSE 54; RESP 16; TEMP 36.9; O2SAT 95; BMI 27.5
--- NOTE | 2023-06-21 04:45 | PC.NURSE ---
PATIENT HAS RESTED WELL THIS SHIFT. SON-IN-LAW THEODORE AT BEDSIDE. VOIDS PER URINAL. DENIES PAIN. SINUS DAKOTAH ON TELEMETRY. VSS/AFEBRILE. DOES NOT LIKE TO WEAR SCUDS.
[2023-06-21 05:01] LABS: POC Glucose,Bedside 125 (70-110)
--- NOTE | 2023-06-21 06:00 | ECG_ITS ---
APPROVED REPORT Exam: Resting ECG HR:48 bpm ECG Measurements Heart Rate 48 AXES AR 157 P 63 QRSd 91 QRS 1 QT 427 T 42 QTc 395 Conclusion SINUS BRADYCARDIA MODERATE VOLTAGE CRITERIA FOR LVH, CONSIDER NORMAL VARIANT [MEETS CRITERIA IN ONE OF: R(aVL), S(V1), R(V5), R(V5/V6)+S(V1)] BORDERLINE ECG UNCONFIRMED REPORT Electronically signed by : Carlos Manuel Joseph MD 06/23/2023 17:14:54
[2023-06-21 07:17] VITALS: BP 114/58; PULSE 59; RESP 18; TEMP 36.6; O2SAT 93
[2023-06-21 08:00] VITALS: PULSE 68
--- NOTE | 2023-06-21 10:39 | EXP.DC.SUM ---
General Admission date:: 06/19/23 Discharge date: 06/21/23 HPI HPI HPI: This is a 73-year-old male with no known medical history other than hyperglycemia presenting with weakness, confusion, fatigue started 1 day prior to arrival on 06/18. Patient usually alert, oriented, able to walk around, taking care of his who is chronically ill. Today, was unable to focus on anything and continued to be confused. Patient is s poor historian therefore data is limited, history obtained by ER review and family at bedside. No vomiting, diarrhea, fevers, rash, or any other abnormalities. Patient does not take medications every day, but does take home supplements. Admitted for evaluation and treatment. Hospital Course Hospital Course Hospital Course: 73-year-old male who presents to [facility] ED with altered mental status accompanied by his sons (Flex and Rodriguez) who assist with the history. He reports dysarthria and altered mental status > 12 hours prompting ED evaluation. In the ED a CT of the brain identified subacute left basal ganglia changes and bradycardia. No history of hypertension or antihypertensive therapy identified. Risk factors for stroke include past tobacco use history and diabetes. Problems addressed as follows: Left MCA stroke Metabolic encephalopathy-resolved Presenting blood pressure 161/70 Telemetry monitoring No TNK secondary from time of symptoms to ED presentation CT brain reviewed with left basal ganglia insult CTA neck and brain with no stenosis MRI brain confirms left basal ganglia insult with no tumors or hemorrhage Carotid Dopplers no identified stenosis Echocardiogram EF 55% with mildly thickened aortic valve Permissive systolics for 24 hours BP trend as inpatient identifies improvement (Discharge BP 114/58) Fasting lipid profile with low HDL Hemoglobin A1c 7.9% TSH normal Antiplatelet therapy High-dose statin therapy PT/OT evaluations reviewed Speech therapy evaluation with diet recommendations noted Case management consult for discharge planning Symptomatic bradycardia Telemetry monitoring with improved heart rates Cardiology consult reviewed ED ECG with normal sinus rhythm and QTc 411 MS Echocardiogram with EF 55% and mildly thickened aortic valve Avoiding AV beni meds Permissive systolics for sub-acute stroke No falls or chest pain reported No chronic vertigo Fasting lipid panel reviewed Antiplatelet therapy Statin therapy Ondina view scan scheduled for Friday at 8 AM Discharge ECG reviewed Acute hypoxic respiratory failure Pulse oximetry monitoring Oxygen therapy to maintain appropriate oxygen saturations Previously requiring 2 L and now currently oxygenating appropriately on room air ED chest x-ray with no acute disease History of tobacco use noted Trending labs and inflammatory markers Diabetes Routine blood sugar monitoring Hemoglobin A1c 7.9% Basal insulin therapy Sliding scale insulin therapy Discharged on SGLT2 inhibitor therapy Carbohydrate controlled diet when taking p.o. The patient remained accompanied by his sons Flex and Rodriguez throughout his stay. The patient identified improvement and interacted with ancillary services. He understands the importance of routine blood pressure and blood sugar monitoring to improve his health. Cardiology has recommended a Ondina view scan to assess his bradycardia. He wishes to be discharged home to return for his study on Friday at 8 AM. He identified improvement and requested to be discharged home. I spent 35 minutes in [id number] time with the patient, sons at bedside and nursing staff (Liv) concerning the discharge process. We discussed the admitting diagnoses and hospital course. We discussed identified improvement and the patient's desire to be discharged. We reviewed inpatient studies and imaging. The patient voiced understanding on the importance of follow-up with his primary care provider and knobber. The
[2023-06-21 11:02] LABS: POC Glucose,Bedside 193 (70-110)
== END 2023-06-21 11:21 | disposition home or self-care (01) | DRG 64 ==
LOC: ER 20:04 → 2ND 21:51
PROVIDERS: Nurse Practitioner Family; Admitting Provider Family Medicine; Emergency Provider Emergency Medicine; Visit Provider Family Medicine
DX: I63.9 Cerebral infarction, unspecified (principal); G93.41 Metabolic encephalopathy; J96.01 Acute respiratory failure with hypoxia; R00.1 Bradycardia, unspecified; E11.9 Type 2 diabetes mellitus without complications; Z87.891 Personal history of nicotine dependence; Z66 Do not resuscitate; R47.1 Dysarthria and anarthria
CPT/HCPCS: 36415; 70450; 70496; 70498; 70551; 71045; 80053; 80061; 80305; 82009; 82803; 82962; 83036; 83605; 83735; 84100; 84436; 84443; 84484; 85025; 85610; 85730; 87040; 92610; 93005; 93306; 93880; 97162; 97165; 97530; 99285; Q9967

== ENCOUNTER → 2023-06-23 07:22 | Outpatient (CLI) | payer SELFPAY ==
--- NOTE | 2023-06-23 07:28 | NM_ITS ---
APPROVED REPORT Exam: Nuclear Stress Test Indication: DM, TOB USE, BRADYCARDIA, CVA Patient Location: Outpatient Stress Tech: Kalyn Sawyer NM Tech:Cari Barahona MARCELINAFelice RT (R)(N)(M) Ht: 5 ft 8 in Wt: 190 lbs HR: 43 bpm BP: 131/60 mmHg BSA: 2.00 m2 Rhythm: NSR TID: 1.12 BMI: 28.8 History: DM, TOB USE, BRADYCARDIA, CVA pt could not lay on stomach for prone images Procedure: Patient received 0.4 mg of intravenous Lexiscan, resting heart rate 43 bpm, resting blood pressure 131/60 mmHg, with Lexiscan maximum heart rate achieved was 81 bpm which is % of the maximum predicted heart rate and blood pressure was 135/68 mmHg. pr c/o c.p. with lexiscan Cardiac Stress and Resting SPECT Images: Cardiac Stress and Resting SPECT images were obtained using technetium 99m Myoview 30.2 mCi stress and 10.74 mCi at rest. The patient could not lie on his abdomen. Therefore, prone stress imaging could not be performed. This may affect the diagnostic interpretation of the study findings. Resting and stress imaging in supine position demonstrate a medium sized, moderate, fixed perfusion defect in the basal inferior LV wall. Gated imaging demonstrates mild reduction in global LV systolic function. There is moderate hypokinesis of the basal inferior LV wall. LVEF is calculated at 46%. Conclusion: The patient could not lie on his abdomen. Therefore, prone stress imaging could not be performed. This may affect the diagnostic interpretation of the study findings. Medium sized, moderate, fixed perfusion defect in the basal inferior LV wall. Gated imaging demonstrates mild reduction in global LV systolic function. There is moderate hypokinesis of the basal inferior LV wall. LVEF is calculated at 46%. Electronically signed by : Gladys Smith MD 06/23/2023 12:01:40
== END ==
PROVIDERS: Visit Provider Family Medicine
DX: R00.1 Bradycardia, unspecified (principal)
CPT/HCPCS: 78452; 93017; A9502; J2785

== ENCOUNTER 2023-10-08 11:35 | Outpatient (CLI) | payer SELFPAY ==
[2023-10-08 15:05] LABS: Prostate Specific Ag Screen 3.9 ng/ml (0.0-4.0)
== END 2023-10-08 23:59 ==
LOC: LAB 11:36
PROVIDERS: PCP Family Medicine; Visit Provider Family Medicine
DX: Z12.5 Encounter for screening for malignant neoplasm of prostate (principal)
CPT/HCPCS: 36415; G0103

== ENCOUNTER 2024-08-12 13:05 | Outpatient (CLI) | payer SELFPAY ==
[2024-08-12 18:45] LABS: Basophils # 0.1 K/mm3 (0-0.2); Basophils % 0.9 % (0.1-2.0); Eosinophils # 0.1 K/mm3 (0.0-0.4); Eosinophils % 2.2 % (0.1-12.0); Hematocrit 45.3 % (42.0-52.0); Hemoglobin 15.5 g/dL (14.1-18.0); Lymphocytes # 1.6 K/mm3 (0.7-4.5); Lymphocytes % 23.9 % (10-50); Mean Corpuscular HGB Conc 34.3 g/dL (31.8-35.4); Mean Corpuscular Hemoglobin 32.7 pg (27.0-31.2); Mean Corpuscular Volume 95.5 fl (80-94); Mean Platelet Volume 9.1 fl (7.4-10.4); Monocytes # 0.4 K/mm3 (0.1-1.0); Monocytes % 6.5 % (1.7-9.3); Neutrophils # 4.4 K/mm3 (1.8-7.8); Neutrophils % 66.5 % (37.0-80.0); Platelet Count 216 K/mm3 (142-424); Red Blood Count 4.75 M/mm3 (4.60-6.20); Red Cell Distribution Width 13.6 % (11.5-17.5); White Blood Count 6.5 K/mm3 (4.8-10.8)
[2024-08-12 19:34] LABS: Anion Gap 12.4 mEq/L (5-15); Blood Urea Nitrogen 21 mg/dl (9-20); Calcium 9.6 mg/dl (8.4-10.2); Carbon Dioxide 28 mmol/L (22.0-30.0); Chloride 104 mmol/L (98-107); Estimated Glomerular Filt Rate 73 ml/min (>60); GFR (African American) 88 ML/MIN (>60); Glucose 176 mg/dl (74-100); Potassium 4.4 mmoL/L (3.5-5.1); Sodium 140 mmol/L (136-145)
[2024-08-12 19:35] LABS: Hemoglobin A1C 7.3 % (4.0-6.0)
== END 2024-08-12 23:59 | disposition home or self-care (01) ==
LOC: LAB.DROPOF 08-13 07:51
PROVIDERS: PCP Family Medicine; Visit Provider Family Medicine
DX: Z00.00 Encounter for general adult medical examination without abnormal findings (principal); R73.09 Other abnormal glucose
CPT/HCPCS: 80048; 83036; 85025